=== PATIENT | male | born 1960 | race Caucasian/White ===

== ENCOUNTER → 2016-10-06 | Outpatient (CLI) | payer BC ==
[~2016-10-06] MED LIST: IBUP-14 PO
== END ==
LOC: NWCC 16:14
PROVIDERS: ATTEND Internal Medicine
DX: I87.2 Venous insufficiency (chronic) (peripheral) (principal); L97.312 Non-pressure chronic ulcer of right ankle with fat layer exposed; Z86.718 Personal history of other venous thrombosis and embolism
CPT/HCPCS: 29581

== ENCOUNTER → 2016-10-18 | Outpatient (CLI) | payer BC ==
[~2016-10-18] MED LIST changes: +HYDR-347 PO; +RIVA20TA PO
== END ==
LOC: NWCC 14:54
PROVIDERS: ATTEND Internal Medicine
DX: I87.2 Venous insufficiency (chronic) (peripheral) (principal); L97.312 Non-pressure chronic ulcer of right ankle with fat layer exposed; R60.0 Localized edema
CPT/HCPCS: 29581

== ENCOUNTER → 2016-10-24 | Outpatient (CLI) | payer BC | LOC: NWCC 14:56 | PROVIDERS: ATTEND Internal Medicine | DX: I87.2 Venous insufficiency (chronic) (peripheral) (principal); L97.312 Non-pressure chronic ulcer of right ankle with fat layer exposed; R60.0 Localized edema; I77.1 Stricture of artery | CPT/HCPCS: 29581 ==

== ENCOUNTER → 2016-10-31 | Outpatient (CLI) | payer BC | LOC: NWCC 14:52 | PROVIDERS: ATTEND Internal Medicine | DX: I87.2 Venous insufficiency (chronic) (peripheral) (principal); L97.312 Non-pressure chronic ulcer of right ankle with fat layer exposed; R60.0 Localized edema; I77.1 Stricture of artery ==

== ENCOUNTER 2016-11-02 10:26 | Outpatient (CLI) | payer BC ==
[~2016-11-02] VITALS: Ht 185.4 cm; Wt 116.4 kg
[2016-11-02] VITALS (12 sets, daily range): BP systolic 132–158; BP diastolic 90–100; PULSE 69–78; RESP 14–20; TEMP 97.4–98.4; O2SAT 95–96; Ht 185.4 cm; Wt 116.4 kg
[~2016-11-02 10:26] MED LIST changes: -HYDR-347 PO; -RIVA20TA PO
--- NOTE | 2016-11-02 10:30 | NUR ---
ADMIT PT ADMITTED TO ROOM 126 AT THIS TIME VIA AMBULATORY STATUS. PT REPOSITIONED SELF IN BED. WILL CONTINUE TO MONITOR.
[2016-11-02] MEDS ORDERED: NORMAL SALINE 1,000 ML IV SCH (10:45)
[2016-11-02] MEDS ORDERED: RIVA20TA PO (10:53)
[2016-11-02] MEDS ORDERED: HYDR-347 PO (10:55)
[2016-11-02 11:12] LABS: BASOPHILS % (AUTO) 0.5 % (0-2); EOSINOPHILS # (AUTO) 0.3 T/MM3 (0-0.5); EOSINOPHILS % (AUTO) 3.6 % (0-4); HGB - HEMOGLOBIN 15.6 GM/DL (13.5-17.5); IMMATURE GRANULOCYTE # (AUTO) 0.02 T/MM3 (0.00-0.03); IMMATURE GRANULOCYTE % (AUTO) 0.2 % (0.0-0.5); LYMPHOCYTES # (AUTO) 2.3 T/MM3 (1-4.8); LYMPHOCYTES % (AUTO) 26.5 % (23-45); MEAN CORPUSCULAR HGB 29.2 UUG (26-34); MEAN CORPUSCULAR HGB CONC(MCHC 33.9 GM/DL (31-37); MEAN CORPUSCULAR VOLUME 86.1 UM3 (80-100); MEAN PLATELET VOLUME 10.9 UM3 (9.4-12.4); MONOCYTES # (AUTO) 0.5 T/MM3 (0-0.8); NEUTROPHILS #(AUTO)-ABSOLUTE 5.5 T/MM3 (1.8-7.7); NEUTROPHILS % (AUTO) 63.2 % (33-66); RED BLOOD COUNT 5.34 M/MM3 (4.50-5.90); WBC - WHITE BLOOD COUNT 8.7 T/MM3 (4.5-11.0)
[2016-11-02 11:23] LABS: ANION GAP 13 MEQ/L (5-15); BUN/CREATININE RATIO 23 RATIO (6-26); CHLORIDE 109 MEQ/L (98-107); CO2 - CARBON DIOXIDE 22 MEQ/L (22-30); CREATININE 0.7 MG/DL (0.8-1.5); GLOMERULAR FILTRATION RATE 117; GLUCOSE 95 MG/DL (75-110); POTASSIUM 4.1 MEQ/L (3.6-5); SODIUM 144 MEQ/L (134-144)
--- NOTE | 2016-11-02 15:02 | NUR ---
TELMA HOLLIS VISITED PT. CM EXPLAINED ROLE AND PROVIDED CONTACT INFORMATION. PT DENIES NEEDS. PT PLANS [place] [facility] PT IS AWARE TO CONTACT CM IF NEEDS ARISE.
[2016-11-02] MEDS ORDERED: HEPARIN 1,000units in NS 500ml BAG IV ONE (16:00)
[2016-11-02] MEDS ORDERED: LIDOCAINE 1% (10mg/ml) 30ml SDV ONE (16:00)
--- NOTE | 2016-11-02 16:00 | NUR ---
TO STEAMTABLE WORKER PATIENT TAKEN TO STEAMTABLE WORKER AT THIS TIME VIA CART AND STEAMTABLE WORKER STAFF. BP CUFF, CONSENT AND CHART TAKEN WITH PATIENT. PT STABLE AND ON ROOM AIR AT TIME OF TRANSFER. WILL CONTINUE TO MONITOR.
[2016-11-02] MEDS ORDERED: FENTANYL 100mcg/2ml INJECTION ONE (16:16)
[2016-11-02] MEDS ORDERED: MIDAZOLAM 2mg/2ml INJECTION ONE (16:16)
[2016-11-02] MEDS ORDERED: NITROGLYCERIN 0.4 MG SUBLINGUAL TABLET SL PRN (16:45)
[2016-11-02] MEDS ORDERED: HYDROCODONE/APAP 5 mg/325 mg TABLET PO PRN (16:45)
[2016-11-02] MEDS ORDERED: ATROPINE 1 MG/ML VIAL IV PRN (16:45)
[2016-11-02] MEDS ORDERED: METOCLOPRAMIDE 10mg/2ml INJECTION IV PRN (16:45)
[2016-11-02] MEDS ORDERED: LORAZEPAM 1 MG TABLET PO PRN (16:45)
[2016-11-02] MEDS ORDERED: PROMETHAZINE 25 MG INJECTION IV PRN (16:45)
[2016-11-02] MEDS ORDERED: MILK OF MAGNESIA 30 ML SUSP PO PRN (16:45)
[2016-11-02] MEDS ORDERED: ACETAMINOPHEN 325 MG TABLET PO PRN (16:45)
[2016-11-02] MEDS ORDERED: ONDANSETRON 4mg/2ml INJECTION IV PRN (16:45)
[2016-11-02] MEDS ORDERED: LORAZEPAM 2 MG/ML INJECTION IV PRN (16:45)
[2016-11-02] MEDS ORDERED: MORPHINE SULFATE 4 MG SYRINGE IV PRN ×2 (16:45)
[2016-11-02] MEDS ORDERED: BISACODYL 10 MG SUPPOSITORY RECTALLY PRN (16:45)
[2016-11-02] MEDS ORDERED: BISACODYL 5 MG E.C. TABLET PO PRN (16:45)
[2016-11-02] MEDS ORDERED: MAG-AL + SIM LIQUID 30 ML UDC PO PRN (16:45)
--- NOTE | 2016-11-02 16:58 | NUR ---
RETURN PT RETURNED TO ROOM 126 AT THIS TIME VIA CART. PT TRANSFERRED FROM CART TO BED BY SLIDE BOARD AND ASSIST X3. VITAL SIGNS STABLE ON ROOM AIR. PT REMAINS FLAT AND LEFT LEG STRAIGHT AND IMMOBILE. BED ALARM ON. WILL CONTINUE TO MONITOR CLOSELY.
--- NOTE | 2016-11-02 17:43 | NUR ---
PAIN PT REPORTING PAIN A 10/10 AT THIS TIME IN HIS LOWER BACK. PT REMAINS FLAT IN BED POST HEART CATH. THIS RN PLACED BED IN REVERSE TRENDELENBURG POSITION TO ATTEMPT TO EASE PAIN. PT DENIED ANY RELIEF FROM THIS BED POSITION CHANGE. WITH THE ASSIST OF THE CLOTH SHRINKING TESTER ANGELITA Estrada PT WAS REPOSITIONED TO HIS RIGHT SIDE WITH A PILLOW PLACED UNDER HIS LEFT SIDE. PT'S LEFT LEG REMAINS FLAT AND IMMOBILE DURING THIS POSITION CHANGE AND PT FLAT IN BED. PT DID REPORT MINIMAL RELIEF. LEFT GROIN SITE DID REMAIN C/D/I AND NO S/S OF BLEEDING NOTED FROM LEFT GROIN ACCESS SITE. VITAL SIGNS REMAIN STABLE DURING THIS TIME ON ROOM AIR. THIS RN ALSO ADMINISTERED NORCO 5/325 X2 TABS AT THIS TIME FOR PAIN. WILL CONTINUE TO MONITOR LEFT GROIN SITE. BED ALARM ON. CALL LIGHT IN REACH.
--- NOTE | 2016-11-02 21:00 | NUR ---
DISMISSAL ASSISTED TO AMBULATE AFTER BEDREST. TOLERATED WELL. LEFT GROIN SITE SOFT WITHOUT SIGNS OF HEMATOMA POST AMBULATION. PATIENT MET DISCHARGE CRITERIA. ORAL AND WRITTEN DISCHARGE INSTRUCTIONS PROVIDED. PATIENT VERBALIZED UNDERSTANDING. IVL DC'D INTACT. DISCHARGED TO HOME VIA ED ENTRANCE WITH PERSONAL BELONGINGS. PATIENT DRIVEN BY SPOUSE.
--- NOTE | 2016-11-03 07:50 | CVPROF ---
LOWER EXTREMITY ANGIOGRAM DATE OF PROCEDURE November 02, [address] Derrick Flores - primary care physician The patient is a 56-year-old gentleman with a right lower extremity ulcer and abnormal lower extremity duplex study and was referred for further evaluation by cardiac catheterization and possible intervention. Informed consent was obtained after explaining the procedure and the potential risks to the patient who agreed to proceed with the procedure. PROCEDURE 1. Abdominal aortography by placing catheter in abdominal aorta. 2. Pelvic angiography by placing catheter in distal abdominal aorta. 3. Selective right lower extremity angiogram using crossover technique and placing catheter in right SFA and right common femoral. 4. Runoffs of the left lower extremity through the left femoral sheath. 5. Successful Mynx deployment for hemostasis. TECHNIQUE He was prepped and draped in the usual sterile techniques. Conscious sedation was performed using Versed and fentanyl. Using modified Seldinger technique, arterial access was obtained into the left femoral artery with placement of a 6-Maltese arterial sheath. ABDOMINAL AORTOGRAPHY Abdominal aortography showed smooth abdominal aorta with no significant lesions or aneurysms. There was a single renal artery to each kidney, both of which were patent. PELVIC ANGIOGRAPHY Pelvic angiography showed widely patent common iliacs, external and internal iliacs and common femoral arteries bilaterally. Selective right lower extremity angiogram showed patent profunda, SFA and popliteal artery. Right posterior tibial artery was patent all the way down to the foot and dominant. Right peroneal artery ordoñez down to a very small caliber vessel in mid leg and the right anterior tibial artery appears to be patent proximally. However, distal vessel was not visualized well due to lack of contrast penetration with a slow flow in lower extremity vasculature. Runoffs of the left lower extremity showed patent profunda, SFA and left popliteal artery. Again, left posterior tibial artery appears to be patent and dominant vessel. Left peroneal artery tapers down to very small caliber vessel as it is in the right leg. Left anterior tibial artery was visualized to mid segment which was patent but beyond that it was not visualized well. The patient tolerated the procedure well with no complications. Mynx was used for hemostasis. IMPRESSION 1. No significant peripheral arterial disease as described above. However, the distal anterior tibial arteries were not visualized well. 2. Successful Mynx deployment for hemostasis. PLAN Medical management. JEFFERY
== END 2016-11-02 21:00 | disposition home or self-care (01) ==
LOC: CATH 10:26 → SRG 10:27 → CATH 21:00
PROVIDERS: ATTEND Internal Medicine Cardiovascular Disease
DX: I77.89 Other specified disorders of arteries and arterioles (principal); M79.604 Pain in right leg; R93.6 Abnormal findings on diagnostic imaging of limbs
CPT/HCPCS: 36247; 75625; 75716; 80048; 85025; 93005; C1760; C1893; J1644; J2250; J3010; J7030; Q9967

== ENCOUNTER 2017-05-13 18:59 | Inpatient (IN) ==
[2017-05-13] MEDS ORDERED: FentaNYL 100 MCG/2 ML INJECTION IVP ONE (19:28)
--- NOTE | 2017-05-13 19:59 | Emergency Department Report ---
General Adult HPI - General Chief complaint: Fall Stated complaint: Fall/rt hip Time Seen by Provider: 05/13/17 19:13 Source: patient, family, EMS Mode of arrival: EMS Limitations: no limitations - History of Present Illness HPI narrative: 67-year-old male presents the emergency department with a chief complaint of an injury to his right hip. Patient was at a festival earlier today when he climbed over a 4 foot fence and slipped causing him to fall and land on his right hip. Patient denies striking his head, neck pain, or loss of consciousness. Patient does note drinking 4-5 beers today. Patient denies any other injuries. No other complaints or associated symptoms. Symptoms been persistent in nature since onset. The event occurred immediately prior to arrival to the emergency department today and was witnessed. Pain is moderate. Pain is dull. No radiation. Pain improves with rest and positioning. Patient denies any other complaints or associated symptoms. - Related Data Home Medications Medication Instructions Recorded Confirmed Hydrocodone/Acetaminophen [[place] 1 tab PO BID #0 tab 11/02/16 05/13/17 7.5-325 Tablet] Rivaroxaban [Xarelto] 20 mg PO DAILY #30 tab 11/02/16 05/13/17 Allergies Allergy/AdvReac Type Severity Reaction Status Date / Time No Known Drug Allergies Allergy Unknown Verified 05/13/17 19:24 Review of Systems Constitutional: Denies: fever, weakness Eyes: Denies: eye pain, vision change ENT: Denies: ear pain, throat pain Cardiovascular: Denies: chest pain, palpitations Respiratory: Denies: cough, dyspnea Gastrointestinal: Denies: abdominal pain, nausea, vomiting, diarrhea Genitourinary: Denies: urgency, dysuria Musculoskeletal: Reports: arthralgia. Denies: back pain Integumentary: Denies: erythema, rash Neurological: Denies: headache, numbness, paresthesias Psychiatric: Denies: anxiety, depression Endocrine: Denies: fatigue, heat or cold intolerance Hematological/Lymphatic: Denies: easy bleeding, easy bruising Allergic/Immunologic: Denies: facial swelling, urticaria PFSH Patient Stated Medical History Other Hematologic Yes: BLOOD CLOT R KNEE Surgical History: Cautery of varicosity Family History: Reviewed and noncontributory - Social History Smoking status: Never smoker Substance use type: does not use Alcohol intake frequency: holidays/special occasions only Physical Exam - Limitations Limitations: no limitations - General General appearance: alert, in no apparent distress - Normal Exams: Head:: Normocephalic without trauma Eyes:: Pupils are PERRLA w/ EOMI, No scleral icterus, irritation, or foreign bodies noted ENMT:: No facial trauma, nasal exudates, pharyngeal erythema, or exudates are noted Dental: No fractured, loose, or missing teeth noted Neck:: Full range of motion, without adenopathy, JVD, bruits or thyromegaly Chest/Respirations:: Clear all almeida, with good airflow, and symmetry bilaterally Cardiovascular:: Regular rate and rhythm, without murmur or gallop, Pulses 2+ all extremities, capillary refill, <2 seconds all extremities Abdomen:: Bowel sounds positive, soft, non-tender, non-distended, no hepatosplenomegaly, masses or bruits noted Lymphatic:: No lymphadenopathy, or lymphedema noted Musculoskeletal:: No tenderness, or deformity noted, good range of motion (no midline tenderness or deformity of the cervical/lumbar/thoracic spine.), all extremities (right hip decreased range of motion secondary to pain. Pulses are intact. Sensation intact. Capillary refill less than 2. Generalized tenderness to palpation. Skin is intact. No other tenderness in the right lower extremity. All other extremities are unremarkable.) Integumentary:: No rashes, hives, or bruising noted, hair and nails, without abnormality Neurological:: Patient is alert, and oriented, cranial nerves, motor/sensory/ cerebellar, exams w/o gross deficits, to observation Psychiatric:: Patient exhibits, appropriate attention, emotion and affect Course Vital Signs Temperature 98.1 F 05/13/17 18:49 Pulse Rate 81 05/13/17 18:49 Respiratory Rate 18 05/13/17 18:49 Blood Pressure 121/77 05/13/17 18:49 Pulse Oximetry 92 05/13/17 18:49 Temperature 98.6 F 05/14/17 00:34 Pulse Rate 80 05/14/17 00:34 Respiratory Rate 20 05/14/17 00:34 Blood Pressure 121/68 05/14/17 00:34 Pulse Oximetry 94 05/14/17 00:34 Medical Decision Making - [facility] Narrative Medical decision making narrative: Imaging is discussed in detail with the patient and family and questions are answered. Patient is given analgesic pain medication intravenously with 1 hour of arrival to the emergency Department. Patient is discussed with Dr. Hoskins of orthopedics who recommends admission to the hospitalist service. Patient is discussed with Dr. Mcarthur and admitted to the service of the hospitalist in improved condition. Preoperative labs will be ordered and followed by the hospitalist service. Patient is in agreement with the current plan of management. Patient is admitted to the hospital in improved condition. No further orders. - Differential Diagnosis hip fracture, sprain, strain, contusion - Lab Data Result diagrams: 05/13/17 22:55 05/13/17 22:55 - Radiology Data Pelvis x-ray with right hip: Femoral neck fracture. CT head/C-spine: No acute processes. Disposition Clinical Impression: hip fracture [place] [facility] Condition: Stable Time of Disposition: 21:00 - Seen By: physician
--- NOTE | 2017-05-13 22:19 | History & Physical Report ---
History of Present Illness Date: 05/14/17 Chief complaint: hip pain HPI: 57-year-old male who was in his usual state of health this evening, he was at a libertarian, was trying to climb over a 4 foot fence, fell on his right hip. He experienced immediate pain, was brought to the emergency room and evaluated. Was noted to have a femoral neck fracture. He does take Xarelto for a history of right lower extremity DVT. last dose on May 12. He can typically walk across a flat surface or above on stairs without having to stop too much shortness of breath. Review of Systems All systems PM: 10-point ROS was reviewed, no additional remarkable complaints except (he does have a history of right lower extremity DVT with some resultant chronic venous stasis changes and ulcerations) [facility] Medical History Updates: Hx DVT 2012 (thought d/t travel/immobility). right leg ulcers related to thrombophlebitis Surgical History: Cautery of varicosity - Social History Smoking status: Former smoker Packs-years: 35 Quit date: 08/07/01 Medications Home Medications Medication Instructions Recorded Confirmed Type Hydrocodone/Acetaminophen [[place] 1 tab PO BID #0 tab 11/02/16 05/13/17 History 7.5-325 Tablet] Rivaroxaban [Xarelto] 20 mg PO DAILY #30 tab 11/02/16 05/13/17 History Allergies Allergy/AdvReac Type Severity Reaction Status Date / Time No Known Drug Allergies Allergy Unknown Verified 05/13/17 19:24 Exam Vital Signs: Temperature 98.1 F 05/13/17 18:49 Pulse Rate 81 05/13/17 18:49 Respiratory Rate 18 05/13/17 18:49 Blood Pressure 121/77 05/13/17 18:49 Pulse Oximetry 92 05/13/17 18:49 - Additional findings Additional findings: is quite pleasant, he appears slightly older stated age therefore the year quite impressive in no distress Lungs are clear bilaterally Cardiovascular regular without murmur gallop Abdomen soft benign nontender obese extremities he has chronic venous stasis changes I dont see acute ulcers on legs Results - Labs CBC & Chem 7: 05/13/17 22:55 05/13/17 22:55 - ECG Data Tracing #[address] t wave changes Conduction abnormalities present: RBBB Assessment and Plan (1) Fracture of femoral neck, right, closed Current visit: Yes Status: Acute 05/13/17 22:17 After midnight, labs are pending EKG and chest x-ray are ok for preoperative clearance. I expect he'll be appropriate to proceed with surgery with the exception possibly Xarelto (last taken on 05-12). Judgment will have to be per disussion with daytime radar operator and orthopedist as to whether to proceed or wait, I think proceeding should be fine but would expect xarelto to be active for 2-3 days at least 05/14/17 06:40 (2) History of DVT (deep vein thrombosis) Current visit: Yes Status: Acute 05/14/17 06:40 last took Xarelto on 05-12 (3) Thrombophlebitis leg superficial Current visit: Yes Status: Acute Hospital Course Summary Disclaimer: The visit summary below is not to be considered part of the above Progress Note.
[2017-05-13] MEDS ORDERED: HYDROCODONE/APAP 5mg/325mg TABLET PO PRN (22:24)
[2017-05-13] MEDS ORDERED: ONDANSETRON 4 MG/2 ML INJECTION IVP PRN (22:24)
[2017-05-13 22:27] VITALS: BMI 34.2
[2017-05-13] MEDS: D5-1/2NS 1,000 ML IV SCH (22:47)
[2017-05-13] MEDS: HYDROMORPHONE 2 MG/ML INJECTION IVP PRN (22:48)
[2017-05-14] MEDS: HYDROMORPHONE 2 MG/ML INJECTION IVP PRN ×6 (01:21→23:56)
[2017-05-14] MEDS: Oxycodone/Acetaminophen 5/325 1 TAB PO PRN ×4 (07:58→20:12)
[2017-05-14] MEDS: D5-1/2NS 1,000 ML IV SCH ×2 (08:16→18:34)
--- NOTE | 2017-05-14 09:10 | XRay Report ---
Indication: Hip fx PROCEDURE: XR chest 1V: Encounter: Initial Comparison: December 07, 2011 Findings: No pneumonia, pleural effusion or pneumothorax. Mild fibrotic changes. Heart size and mediastinal contours are within normal limits. Impression: No acute cardiopulmonary disease. .
--- NOTE | 2017-05-14 09:12 | CT Scan Report ---
Indication: fall, CHI PROCEDURE: CT head/brain wo con: Encounter: Initial Comparison: None Technique: Axial CT images through the head were performed without contrast. Iterative Reconstruction dose reducing technique was utilized. FINDINGS: The ventricles are of normal size, shape, and configuration for the patient's age. There is no evidence of acute intracranial hemorrhage, midline displacement, or mass effect. There are scattered areas of low attenuation in the white matter which most likely represent changes of chronic microvascular ischemia. The CT attenuation of the brain parenchyma is otherwise normal within the cerebellum, brain stem, and cerebral hemispheres. The tympanic cavities and mastoid air cells are free of appreciable disease. There are no definite fractures of the skull base, calvarium, or visualized portion of the midface. Moderate sinus disease with chronic left maxillary sinusitis. IMPRESSION: No CT evidence of acute traumatic intracranial injury. There is a preliminary report by [facility] [employer]. .
--- NOTE | 2017-05-14 09:14 | CT Scan Report ---
Indication: fall, pain PROCEDURE: CT cervical spine wo con: Encounter: Initial Comparison: None Technique: Axial CT images through the cervical spine were performed without contrast. Coronal and sagittal reformatted images were also obtained. Automated Exposure Control and Iterative Reconstruction dose reducing techniques were utilized. FINDINGS: The alignment of the cervical spine is normal. Multilevel degenerative changes are present. There is no evidence of acute fracture or subluxation of the cervical spine. The facet joints are well aligned with preservation of the intervertebral disk and facet joints. The atlantoaxial articulation, dens, and upper cervical spine demonstrate no subluxation. There is no evidence of significant spinal stenosis, foraminal compromise, or significant disk herniation. The paraspinal soft tissues and spinal canal appear unremarkable. IMPRESSION: No acute traumatic abnormality of the cervical spine. There is a preliminary report by [facility]. .
--- NOTE | 2017-05-14 09:15 | XRay Report ---
Indication: Pain, fall PROCEDURE: XR pelvis w/ 2 view RT hip: Encounter: Initial Comparison: None Findings: Mildly displaced right femoral neck fracture. No additional acute fracture or dislocation seen. No significant angulation. Impression: Closed posttraumatic subcapital right femoral neck fracture. .
--- NOTE | 2017-05-14 10:28 | Orthopedic Consult Note ---
Orthopedic Consultation HPI - Consultation Info Consult Date: 05/14/17 Attending Physician: Cas Cox MD Consult Reason: fracture (Right Femoral Neck Fracture) - History of Present Illness 57 yo male presented to the ED last night after tripping over a 4 foot snow fence and falling on his right hip. Immediate pain and inability to WB. Still in a fair amount of pain despite IV pain meds. Complains of spasm. No traction at this time. Has been NPO so no oral meds. Takes Xarelto for DVT since 2012. DVT cause assumed to be secondary to stasis, inactivity. Has recently been having medial thigh and knee pain. There was concern for new DVT so his PCP had ordered an MRI. Showed some medial femoral condyle edema, mild cartilage loss, meniscus tear. Pain is moderate. Primarily in the groin area of the right hip. Denies LOC, neck pain, or other extremity pain. Review of Systems - Constitutional Constitutional: Absent: chills, fever(s), night sweats - EENT Eyes: Absent: change in vision Ears, nose, mouth, throat: Absent: headaches, vertigo, lightheadedness - Cardiovascular Cardiovascular: Absent: chest pain, palpitations, dyspnea on exertion Vascular: Present: pedal edema, varicosities, other (ho stasis ulcers, RLE DVT) - Respiratory Respiratory: Absent: cough, dyspnea, dyspnea on exertion - Gastrointestinal Gastrointestinal: Absent: constipation, diarrhea - Musculoskeletal Musculoskeletal: Present: as per HPI, limited range of motion, muscle cramps, joint pain - Integumentary/Breasts Integumentary: Present: swelling - Neurological Neurological: Absent: abnormal gait, dizziness, numbness, tingling - Psychiatric Psychiatric: Absent: anxiety, depression - Hematologic/Lymphatic Hematologic/Lymphatic: Present: easy bleeding (Xarelto), easy bruising (Xarelto) [facility] Patient Stated Medical History Other Hematologic Yes: BLOOD CLOT R KNEE Medical History Updates: Hx DVT 2012 (thought d/t travel/immobility). 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, runs a brake Medications Home Medications Medication Instructions Recorded Confirmed Type Hydrocodone/Acetaminophen [[place] 1 tab PO BID #0 tab 11/02/16 05/13/17 History 7.5-325 Tablet] Rivaroxaban [Xarelto] 20 mg PO DAILY #30 tab 11/02/16 05/13/17 History Allergies Allergy/AdvReac Type Severity Reaction Status Date / Time No Known Drug Allergies Allergy Unknown Verified 05/13/17 19:24 Orthopedic Exam Vital signs: Temperature 98.4 F 05/14/17 08:00 Pulse Rate 75 05/14/17 08:00 Respiratory Rate 16 05/14/17 08:00 Blood Pressure 137/82 05/14/17 08:00 Pulse Oximetry 94 05/14/17 08:00 - Constitutional General Appearance: Present: alert, orientated x3, mild distress - Respiratory Exam Present: non-labored - Cardiovascular Exam Present: peripheral edema (mild), pedal pulses intact Capillary Refill: < 2-3 Seconds - Abdominal Exam Present: soft. Absent: tenderness, distended - Extremities Exam Present: pulses intact, normal capillary refill. Absent: calf tenderness, Jess 's sign - Hip Exam right Hip Exam: Present: tender over trochanter, abnormal rotation, painful PROM, IR- limited - Integumentary Exam Present: pink, warm, dry Comments: RLE stasis. No active ulcers. - Neurological Exam Present: intact to light touch, no deficits - Psychiatric Exam Present: alert, oriented, normal affect, attentive - Labs Result Diagrams: 05/13/17 22:55 05/13/17 22:55 Abnormal lab results 05/13/17 05/13/17 05/14/17 Range/Units 22:55 22:55 00:25 WBC 12.4 H (4.5-11.0) T/MM3 Neut % (Auto) 78.3 H (33-66) % Lymph % (Auto) 15.3 L (23-45) % Neut # (Auto) 9.7 H (1.8-7.7) T/MM3 Sodium 145 H (134-144) MEQ/L Chloride 112 H (98-107) MEQ/L Carbon Dioxide 21 L (22-30) MEQ/L Creatinine 0.7 L (0.8-1.5) MG/DL Ur Specific [place] 1.010 L (1.015-1.025) Urine Occult Blood 1+ A (NEGATIVE) H & H 05/13/17 Range/Units 22:55 Hgb 14.2 (13.5-17.5) GM/DL Hct 41.8 (41-53) % - Diagnostic results Hip x-ray: report reviewed, image reviewed (Right displaced femoral neck fracture) Impression and Recommendation (1) Fracture of femoral neck, right, closed Current visit: Yes Qualifiers: Encounter type: initial encounter Qualified Code(s): S72.001A - Fracture of unspecified part of neck of right femur, initial encounter for closed fracture Status: Acute Discussed the findings with the patient regarding his fracture. His fracture will necessitate surgical treatment in the form of a DARLIN vs endoprosthesis because of the displacement and likely disruption of blood flow to the femoral head. He is still relatively active and has been having medial thigh pain and knee pain. His MRI does show some medial knee arthritis, but could also be secondary to some of his mild/moderate hip OA. He thinks he would be more interested in DARLIN than hemiarthroplasty and would like to discuss this further with Dr. Villafuerte. Delaying surgery is understood, but would be delayed anyway, ideally, because of his anticoagulation with Xarelto. I spoke with Dr Villafuerte who agrees and is planning to add Mr. Lewis to his OR schedule for Monday. Will allow regular diet today and tomorrow. Dr. Villafuerte to see him tomorrow to discuss surgery further. For spasm, Gosper traction was offered. Will also start on po percocet with dilaudid prn for breakthrough. Ok to start lovenox for prophylaxis at this time. Hospital Course Summary Disclaimer: The visit summary below is not to be considered part of the above Progress Note.
--- NOTE | 2017-05-14 11:09 | Progress Note ---
Subjective: 57 yo male presented to the ED last night after tripping over a 4 foot snow fence and falling on his right hip. Immediate pain and inability to bear weight. He was in a fair amount of pain despite IV pain meds. Complains of spasm. No traction at this time. Has been NPO so no oral meds. Takes Xarelto for DVT since 2012. DVT cause assumed to be secondary to stasis, inactivity. Has recently been having medial thigh and knee pain. There was concern for new DVT so his PCP had ordered an MRI. Showed some medial femoral condyle edema, mild cartilage loss, meniscus tear. Pain is moderate. Primarily in the groin area of the right hip. Denies LOC, neck pain, or other extremity pain. 05/14/2017 the patient reports that prior to his fall he his been in normal state of health. He is fairly active. He was at a gathering last evening and stepped over a snow fence catching his foot. He landed on his right hip and was unable to ambulate thereafter due to severe pain and unable to bear weight. He had had 4 beers but state this is unrelated to his fall. His history is that of a DVT in 2012. He had been traveling prior to the discovery of the DVT and that was felt to be the etiology. He was on Coumadin for 6 months and then they switched him to Xarelto. He's been on that ever since. He denies any other medical history and is only home meds include the Xarelto and hydrocodone for pain. He has been having quite a bit of right knee pain lately and had a recent MRI performed for evaluation. He tells me he does not know the results of the MRI. MRI: 05/08/2017 IMPRESSION: 1. Subchondral edema is seen at the posterior aspect of the medial femoral condyle likely representing a bone contusion or osteochondral injury. 2. Horizontal linear signal seen at the posterior horn of the lateral meniscus which comes close to the inferior surface and an inferiorly surfacing degenerative tear cannot be excluded towards the central aspect. He has not been ill lately. He said no fever, chills, cold or flu like symptoms. He denies any cough sputum production. He does get a bit short of breath with exertion but it's no worse than usual. He denies palpitations, chest discomfort. He does get a little lightheaded when changing positions from lying to sitting standing. He simply takes this time. He does have chronic back pain for which she was seeing a chiropractor but that chiropractor has since retired. He denies any abdominal pain, nausea, vomiting, diarrhea, constipation , black tarry stools or bloody stools. He denies any dysuria. He denies lower extremity edema. This morning he is resting in bed. He is in traction on the right hip. He is having moderate pain. 05/14/2017 1530 I was contacted earlier today from nursing reporting the patient was having blood from his penile meatus. They had given him a dose of Lovenox ordered by ortho. He was not urinating blood it was simply draining out the end of his penis. There was considerable amount blood dripping out. The patient denies ever having any issues like this before. He denies any trauma. He denies dysuria. He denies pain. I saw him later in the afternoon and he reports it has slowed down. He's quite concerned that this may delay surgery. I did consult urology to see the patient. Objective Vital signs: Temperature 98.4 F 05/14/17 08:00 Pulse Rate 75 05/14/17 08:00 Respiratory Rate 16 05/14/17 08:00 Blood Pressure 137/82 05/14/17 08:00 Pulse Oximetry 94 05/14/17 08:00 Rhythm: Normal Sinus Rhythm, Bundle Branch Block Height/Weight/BMI: Height 1.85 m Weight 118.1 kg Body Mass Index 34.2 Comments: Gen.: the patient is alert and oriented. Mild to moderate discomfort from his hip. Skin: warm and dry. HEENT: NC/AT PERRL, EOMI, Sclera, lids and conjunctiva wnl. MMM, OP clear. Neck: Supple. No JVD. Carotids 2+ without bruits. Lungs: Clear. No rales, rhonchi or wheezes. CV: regular rate and rhythm without murmur, rub or gallop. Abdomen: obese, soft, nontender with positive bowel sounds. MS: right lower extremity in traction. There is no lower extremity edema. There are good distal pedal pulses. Neuro: no focal deficits. Results - Labs CBC & Chem 7: 05/13/17 22:55 05/13/17 22:55 Assessment and Plan (1) Fracture of femoral neck, right, closed Current visit: Yes Status: Acute 05/13/17 22:17 After midnight, labs are pending EKG and chest x-ray are ok for preoperative clearance. I expect he'll be appropriate to proceed with surgery with the exception possibly Xarelto (last taken on 05-12). Judgment will have to be per disussion with daytime projection welding machine operator and orthopedist as to whether to proceed or wait, I think proceeding should be fine but would expect xarelto to be active for 2-3 days at least 05/14/17 06:40 (2) History of DVT (deep vein thrombosis) Current visit: Yes Status: Acute 05/14/17 06:40 last took Xarelto on 05-12 (3) Thrombophlebitis leg superficial Current visit: Yes Status: Acute DVT Prophylaxis: Lovenox Resuscitation Status: Full Code Assessment and Plan: 1. Closed Fracture of the right femoral neck -plan for surgery tomorrow with Dr. Hoskins -patient interaction -provide pain relief 2. History of DVT in 2012 -previously on Coumadin but then switched to Xarelto -Xarelto on hold for anticipated hip replacement. 3. Mild leukocytosis -likely reactive 4. SCD's for prophylaxis 5. Bright red blood draining from penis. -Urology consultation. -Quantitatively this has improved through the afternoon -will continue to follow. Hospital Course Summary Disclaimer: The visit summary below is not to be considered part of the above Progress Note.
[2017-05-14] MEDS ORDERED: CEFAZOLIN 1 G INJECTION IVP ONE (12:25)
[2017-05-14] MEDS ORDERED: ENOXAPARIN 40 MG/0.4 ML INJECTION SQ SCH (12:30)
[2017-05-15] MEDS ORDERED: SALINE FLUSH 10ml SYRINGE IV PRN (00:01)
[2017-05-15] MEDS: Oxycodone/Acetaminophen 5/325 1 TAB PO PRN ×5 (03:53→20:04)
[2017-05-15] MEDS: D5-1/2NS 1,000 ML IV SCH ×2 (04:36→14:47)
--- NOTE | 2017-05-15 10:28 | XRay Report ---
Indication: Pre op planning. Rt total hip scheduled. Procedure: XR pelvis 1-2V: Encounter: Subsequent Comparison: Pelvic and right hip radiographs 05/13/2017 Technique: A single AP view of the pelvis was obtained Findings: Generalized osteopenia. Redemonstration and grossly unchanged mildly displaced, foreshortened, and angulated fracture of the right femoral neck. Degenerative arthrosis of the hips. No focal radiographically apparent soft tissue swelling. No radiopaque foreign body. Impression: Unchanged radiographic appearance of the patient's known right femoral neck fracture. .
[2017-05-15] MEDS: HYDROMORPHONE 2 MG/ML INJECTION IVP PRN ×3 (11:19→22:20)
--- NOTE | 2017-05-15 19:28 | Progress Note ---
<Laura Caldwell - Last Filed: 05/15/17 19:25> Subjective: Patient is seen today lying in bed. He has traction on the right leg. He will be going to surgery tomorrow. He continues to have quite a bit of pain. He doesn 't feel the Percocet or Dilaudid helps very much at all. Nurse reports she's been giving the Percocet routinely. He continues to complain that his pain is the same, although he can chat with family and go through daily motions without acting like he is having significant pain. He's not had a bowel movement since he has been here. Other than the pain in his hip and knee, he has no complaints. He is anxious to see urology for the bleeding from his penis. He's afraid that that would delay the surgery. Dr. Smith has been consulted but has not been in to see him yet. He has not had any further significant bleeding. He will sometimes have just a few drops of blood after urinating. No obvious blood in the urine. No pain on urination. Objective Vital signs: Temperature 98.1 F 05/15/17 15:00 Pulse Rate 72 05/15/17 15:00 Respiratory Rate 16 05/15/17 15:00 Blood Pressure 157/86 H 05/15/17 15:00 Pulse Oximetry 95 05/15/17 15:00 Height/Weight/BMI: Height 1.85 m Weight 118.1 kg Body Mass Index 34.2 - Constitutional Present: no acute distress, well nourished, well developed - Routine HEENT Exam Head: Present: normocephalic, atraumatic - Routine Respiratory Exam Present: CTA bilaterally. Absent: dyspnea, wheezes - Routine Cardiovascular Exam Present: RRR, S1, S2. Absent: murmur - Routine Abdominal Exam Present: soft, normoactive bowel sounds, non distended. Absent: tenderness - Routine Extremities Exam Present: no edema (left lower extremity. The right lower extremity is protected in foam.), normal capillary refill - Routine Skin Exam Present: dry, warm - Routine Neurological Exam Present: alert, oriented X3, CN II-XII intact - Routine Lymphatic Exam Lymphatic: Absent: adenopathy - Routine Psychiatric Exam Present: normal affect Results - Labs CBC & Chem 7: 05/15/17 04:49 05/15/17 04:49 Assessment and Plan (1) Fracture of femoral neck, right, closed Current visit: Yes Status: Acute (2) History of DVT (deep vein thrombosis) Current visit: Yes Status: Acute Last Xarelto dose 05/12/17 (3) Thrombophlebitis leg superficial Current visit: Yes Status: Acute Assessment and Plan: Impression Closed Fracture of the right femoral neck History of DVT in 2012 Mild leukocytosis -resolved Bright red blood draining from penis following administration of Lovenox Plan Will be NPO after midnight for surgery with Dr. Villafuerte tomorrow. Lovenox and Xarelto are currently on hold. Lovenox was held after bleeding from the penis. Still having very minimal bleeding after urinating. Awaiting Dr. Smith's consultation. Increase Dilaudid to 1 mg IV every 2 hours PRN since he will not be receiving Percocet after midnight. Hospital Course Summary Disclaimer: The visit summary below is not to be considered part of the above Progress Note. Hospital Course: Closed Fracture of the right femoral neck History of DVT in 2012 Mild leukocytosis -resolved Bright red blood draining from penis following administration of Lovenox 05/13/17-hospital admission Patient admitted under hospitalist service and or the consult. Xarelto last taken 05/12/17. Will hold this. May have regular diet until surgery is scheduled. 05/14/17 1. Closed Fracture of the right femoral neck -Hernandez's traction was initiated. Lovenox prophylaxis was started. 2. History of DVT in 2012 -previously on Coumadin but then switched to Xarelto -Xarelto on hold for anticipated hip replacement. 3. Mild leukocytosis -likely reactive 4. SCD's for prophylaxis 5. Bright red blood draining from penis following administration of Lovenox. Lovenox was thus discontinued. -Urology consultation. -Quantitatively this has improved through the afternoon -will continue to follow. 05/15/17 Will be NPO after midnight for surgery with Dr. Villafuerte tomorrow. Lovenox and Xarelto are currently on hold. Lovenox was held after bleeding from the penis. Still having very minimal bleeding after urinating. Awaiting Dr. Smith's consultation. Increase Dilaudid to 1 mg IV every 2 hours PRN since he will not be receiving Percocet after midnight. <Deja Ortiz - Last Filed: 05/15/17 22:35> Objective Vital signs: Temperature 98.1 F 05/15/17 15:00 Pulse Rate 72 05/15/17 15:00 Respiratory Rate 16 05/15/17 15:00 Blood Pressure 157/86 H 05/15/17 15:00 Pulse Oximetry 95 05/15/17 15:00 Height/Weight/BMI: Height 1.85 m Weight 118.1 kg Body Mass Index 34.2 Results - Labs CBC & Chem 7: 05/15/17 04:49 05/15/17 04:49 Assessment and Plan (1) Fracture of femoral neck, right, closed Current visit: Yes Status: Acute (2) History of DVT (deep vein thrombosis) Current visit: Yes Status: Acute (3) Thrombophlebitis leg superficial Current visit: Yes Status: Acute Assessment and Plan: 05/15/2017-I reviewed this chart, the patient history, and the HAND SAMPLE MAKER's/PA's documented findings as above. We discussed and formulated the assessment and plan as above with the additions below.-Ortiz The patient is feeling well other than hip pain. He denies any shortness of breath. He is eating and drinking well. He denies pain elsewhere. He states the bleeding from his penis that he had previously has completely resolved. He did not have any trauma to his penis that he is aware of. On exam the patient is alert and oriented 3 and in no acute distress. Chest is clear to auscultation. Cardiovascular reveals a regular rate and rhythm. Abdomen is soft and nontender. Impression and plan Overall patient is doing well. Agree with plans for surgery tomorrow. Resume anticoagulation postoperatively when okay with the orthopedic service. Discussed hematuria with urology tomorrow. Hospital Course Summary Disclaimer: The visit summary below is not to be considered part of the above Progress Note.
[2017-05-16] MEDS: Oxycodone/Acetaminophen 5/325 1 TAB PO PRN (00:06)
[2017-05-16] MEDS: D5-1/2NS 1,000 ML IV SCH ×2 (01:09→16:54)
[2017-05-16] MEDS: HYDROMORPHONE 2 MG/ML INJECTION IVP PRN ×6 (02:02→14:09)
[2017-05-16] MEDS ORDERED: NOZIN NASAL SWAB NAS ONE ×2 (06:00→14:33)
[2017-05-16] MEDS ORDERED: CEFAZOLIN 1 G INJECTION IVP ONE (07:00)
[2017-05-16] MEDS ORDERED: EPINEPHrine 0.25 MG, BUPIVACAINE 0.25% PF 30 ML, MORPHINE SULFATE 15 MG, KETOROLAC INJ ... OPSITE ONE (08:00)
[2017-05-16] MEDS ORDERED: DEXAMETHASONE 4 MG/ML INJECTION IVP ONE (10:00)
[2017-05-16] MEDS ORDERED: ONDANSETRON 4 MG/2 ML INJECTION IVP ONE (10:00)
[2017-05-16] MEDS ORDERED: TRANEXAMIC ACID 1,000 MG in NS 100 ML TOP ONE (10:00)
[2017-05-16] MEDS ORDERED: ACETAMINOPHEN 500 MG TABLET PO ONE (10:00)
[2017-05-16] MEDS ORDERED: FAMOTIDINE PB 20 MG/50 ML BAG IV ONE (10:00)
[2017-05-16] MEDS ORDERED: METOCLOPRAMIDE 10mg/2ml INJECTION IVP ONE (10:00)
[2017-05-16] MEDS: LR 1,000 ML IV SCH ×3 (10:01→12:31)
[2017-05-16] MEDS ORDERED: VANCOMYCIN 1,000 MG INJECTION ONE (11:05)
[2017-05-16] MEDS ORDERED: FentaNYL 100 MCG/2 ML INJECTION ONE (11:12)
[2017-05-16] MEDS ORDERED: MIDAZOLAM 2mg/2ml INJECTION ONE (11:12)
[2017-05-16] MEDS ORDERED: PROPOFOL 20 ML ONE (11:14)
[2017-05-16] MEDS ORDERED: SUCCINYLCHOLINE 20mg/mL 10mL INJECTION ONE (11:14)
[2017-05-16] MEDS ORDERED: EPHEDRINE 50mg/ml INJECTION ONE (11:41)
[2017-05-16] MEDS ORDERED: HYDROMORPHONE 2 MG/ML INJECTION ONE (11:56)
[2017-05-16] MEDS ORDERED: ONDANSETRON 4 MG/2 ML INJECTION ONE (11:58)
[2017-05-16] MEDS ORDERED: DEXAMETHASONE 4 MG/ML INJECTION ONE (11:58)
[2017-05-16] MEDS ORDERED: VANCOMYCIN 1,000 MG INJECTION IAR ONE (12:33)
[2017-05-16] MEDS ORDERED: SALINE FLUSH 10ml SYRINGE ONE (12:38)
--- NOTE | 2017-05-16 12:51 | Operative Note ---
- Procedure Preoperative Diagnosis: Right hip primary degenerative joint disease Postoperative Diagnosis: Same as preoperative diagnosis. Surgeon: Ely Villafuerte MD Marketing Director Assisted Living: [facility] Complications: None. Anesthesia: General Estimated Blood Loss: See Anesthesia Record. Fluids: Please see Anesthesia Record. Description of Procedure: Mr. Lewis and his right hip were identified and marked in the preoperative holding area. He was brought back to operating suite and placed supine on the operating table. He is placed under general anesthesia and then place and allowed decubitus position with his right side up on a well-padded table. The right lower extremity was prepped and draped in my normal sterile fashion. Timeout was performed. Leg lengths were difficult to assess preoperatively due to the fracture. A posterior approach was utilized. Sharp dissection was carried through the skin and subcutaneous tissue down to the muscle fascia which was then split in line with the skin incision. A Charnley retractor was placed. The short external rotators were identified and tagged and detached. Capsulotomy was performed and a femoral neck osteotomy was made. The head as well as neck piece were removed. The acetabulum was exposed. There were minimal arthritic changes. I then reamed to 5 7 placed a 58 cup in 20 of anteversion and 40 of tilt. A liner was placed. The proximal femur was then prepared with a BridgeCoie cutter followed by broaching to a size 9. We trialed with 132 neck to match his previous anatomy most accurately. It took a +10 head to regain his leg length and give appropriate shuck. I did check positioning and leg length with fluoroscopic imaging at this point. He was very stable throughout range of motion. Trial components were removed and a final Accolade 2 size 9 with 132 neck was placed. We again trialed with a +10 was felt good. A final metal +10 36 mm head was placed and final reduction performed. Joint cocktail was injected throughout the soft tissues.1 g of TXA was allowed to sit in the wound for 5 minutes and then suctioned out. Capsulotomy was repaired with #1 Ethibond the short external rotators were also repaired with #1 Ethibond. Vancomycin powder was placed into the wound. The muscle fascia was repaired with #1 Vicryl. I then left my assistant family teacher to close the subcutaneous tissue with 2-0 Vicryl followed by running 4-0 Monocryl in the skin followed by Dermabond and a sterile dressing. The patient will then be allowed to awake from general anesthesia and taken recovery room under the care of anesthesia.
--- NOTE | 2017-05-16 13:57 | Anesthesia Postoperative Note ---
- Date and Time Date: 05/16/17 Time: 13:57 - Status Patient Participated in Evaluation: Patient Participated in Person Vital Signs: Temperature 97.1 F 05/16/17 13:14 Pulse Rate 94 05/16/17 13:45 Respiratory Rate 13 05/16/17 13:45 Blood Pressure 142/84 H 05/16/17 13:45 Pulse Oximetry 96 05/16/17 13:45 Respiratory Function: Airway Patent Cardiovascular Function: Regular Pulse EKG: Sinus Rhythm Mental Status: Alert and Oriented Pain Intensity: 4 Hydration: IV Infusing Complications During Recover: None Apparent - Follow-Up Instructions Instructions: Per Surgeon
--- NOTE | 2017-05-16 13:57 | Anesthesia Preoperative Report ---
Anesthesia Preoperative Record - Date and Time Date: 05/16/17 Preoperative Diagnosis: R Hip fx Proposed Procedure: right DARLIN NPO Since Date: 05/15/17 NPO Since Time: 23:00 Allergies/Adverse Reactions: Allergies Allergy/AdvReac Type Severity Reaction Status Date / Time No Known Drug Allergies Allergy Unknown Verified 05/13/17 19:24 - Vital Signs Vital Signs: Temperature 97.1 F 05/16/17 13:14 Pulse Rate 94 05/16/17 13:45 Respiratory Rate 13 05/16/17 13:45 Blood Pressure 142/84 H 05/16/17 13:45 Pulse Oximetry 96 05/16/17 13:45 Height and Weight: Height 6 ft 1 in Weight 118.1 kg Body Mass Index 34.2 - Medications Inpatient Medications: Current Medications Hydrocodone Bitart/Acetaminophen ([place] 5/325) 1 tab PO Q6H PRN PRN Reason: Pain Last Admin: 05/14/17 23:17 Dose: 1 tab Hydromorphone HCl (Dilaudid) 0.5 - 1 mg IVP Q2H PRN PRN Reason: Pain Last Admin: 05/16/17 07:38 Dose: 1 mg Hydromorphone HCl (Dilaudid) 0.5 - 2 mg IVP Q10M PRN Last Admin: 05/16/17 13:54 Dose: 0.5 mg Dextrose/Sodium Chloride (D5-1/2ns) 1,000 mls @ 100 mls/hr IV .Q10H SHAHNAZ Last Infusion: 05/16/17 05:35 Dose: 100 mls/hr Epinephrine HCl 0.25 mg/Bupivacaine HCl 30 ml/Morphine Sulfate 15 mg/Ketorolac Tromethamine 60 mg/Sodium Chloride 65.25 mls @ 1 mls/hr OPSITE INTRAOP ONE PRN Reason: Protocol Stop: 05/19/17 01:14 Last Admin: 05/16/17 12:36 Dose: 1 mls/hr Lactated Ringer's (Lactated Ringers) 1,000 mls @ 50 mls/hr IV .Q20H SHAHNAZ Last Admin: 05/16/17 12:31 Dose: 50 mls/hr Ondansetron HCl (Zofran) 4 mg IVP Q6H PRN PRN Reason: Nausea &/or vomiting Oxycodone/Acetaminophen (Percocet 5/325) 1 - 2 tab PO Q4H PRN PRN Reason: Pain Last Admin: 05/16/17 00:06 Dose: 2 tab Sodium Chloride (Iv Flush) 10 - 80 ml IV PRN PRN PRN Reason: Flushing Last Admin: 05/15/17 00:02 Dose: 20 ml Home Medications: Home Medications Medication Instructions Recorded Confirmed Type Hydrocodone/Acetaminophen [[place] 1 tab PO BID #0 tab 11/02/16 05/13/17 History 7.5-325 Tablet] Rivaroxaban [Xarelto] 20 mg PO DAILY #30 tab 11/02/16 05/13/17 History Is Patient on Beta Aneesh?: No - Medical History Respiratory: DENIES: Asthma, Sleep Apnea Cardiovascular: Reports: Other (DVT hx- xalelto) Gastrointestional: DENIES: Gastroesophageal Reflux Disease Renal/Endocrine: DENIES: Diabetes Mellitus Type 2 Other History: DENIES: Anesthesia Reactions - Surgical History Musculoskeletal Surgery/Tx: Reports: Other (CARPAL TUNNEL) Anesthesia Reactions: None Hx Family Anesthesia Reaction: No History of Motion Sickness: No - Social History Smoking Status: Former smoker Hx Chewing Tobacco Use: No Second Hand Exposure: No Substance Use Type: marijuana (3 days ago) Alcohol Intake: current Alcohol Intake Frequency: a few times a month Last Drink: hours (ago) - Pertinent Findings Laboratory: CBC and BMP 05/16/17 09:11 05/16/17 09:11 BMP 05/16/17 05/16/17 08:24 09:11 Sodium Cancelled 140 Potassium Cancelled 3.9 Chloride Cancelled 104 Carbon Dioxide Cancelled 28 BUN Cancelled 9.0 Creatinine Cancelled 0.7 L Glucose Cancelled 101 Calcium Cancelled 8.3 L EKG: Sinus Rhythm, First Degree AV Block - Discussion Discussion: Discussed risks/options/alternatives of anesthesia and questions answered. Patient consents. Nursing pain assessment noted. Attestation Statement: Prior to the delivery of any anesthetic medication, I examined the patient, developed the plan, obtained the patient's consent and discussed the risk and benefits of the procedure with the patient/guardian.
--- NOTE | 2017-05-16 14:06 | XRay Report ---
Indication: postoperative image PROCEDURE: XR pelvis w/ 1 view RT hip: Encounter: Initial Comparison: Pelvis radiograph dated May 15, 2017 Findings: Postoperative changes of right total hip replacement are seen. There is expected postoperative subcutaneous gas. No evidence of hardware failure or acute fracture. No retained radiopaque surgical instruments or sponges seen. Impression: New right total hip prosthesis without evidence of immediate complication. .
--- NOTE | 2017-05-16 14:07 | Remote Fluorsocopy Report ---
Indication: R HIP ARTHROPLASTY PROCEDURE: RF hip RT 1 view: Encounter: Initial Comparison: Radiographs from today Findings: Four fluoroscopic spot images are submitted for interpretation. Images show various stages of placement of a right total hip replacement. Impression: Fluoroscopy as above. Fluoroscopy time is 13.2 seconds. Fluoroscopy dose is 791.3 mRad. .
[2017-05-16] MEDS ORDERED: DiphenhydrAMINE 50 MG/ML INJECTION IVP PRN (14:33)
[2017-05-16] MEDS ORDERED: ONDANSETRON 4 MG/2 ML INJECTION IVP PRN (14:33)
[2017-05-16] MEDS ORDERED: DiphenhydrAMINE 25 MG CAPSULE PO PRN (14:33)
[2017-05-16] MEDS ORDERED: LORazepam 1 MG TABLET PO PRN (14:33)
[2017-05-16] MEDS: ACETAMINOPHEN 325 MG TABLET PO SCH ×3 (15:15→20:19)
[2017-05-16] MEDS: NOZIN NASAL SWAB NAS SCH ×2 (15:27→20:20)
[2017-05-16] MEDS: CEFAZOLIN 2 G in NS 100 ML IV SCH (20:17)
[2017-05-16] MEDS: ENOXAPARIN 40 MG/0.4 ML INJECTION SQ SCH (20:20)
[2017-05-16] MEDS: DOCUSATE SODIUM 100 MG CAPSULE PO SCH (20:20)
[2017-05-16] MEDS ORDERED: FALL RISK - PHARMACY CONSULT XX ONE (20:41)
[2017-05-16] MEDS ORDERED: SENNOSIDES 8.6 MG TABLET PO SCH (21:00)
--- NOTE | 2017-05-16 22:15 | Progress Note ---
Subjective: The patient was seen earlier this evening. He underwent right hip fracture pair earlier today and did well. Postoperatively he states he has no pain. He is on room air and denies any dyspnea. He denies any nausea or vomiting. He is eating and drinking well. He has had no recurrence of hematuria. He has a Roy catheter in place. He denies any bleeding around the catheter. He denies any penile pain or bladder pain. The patient states he has a chronic tremor related to history of carpal tunnel. On questioning, he states he drinks 4 or 5 beers a week on average, usually for on Monday and may be one another day of the week. Objective Vital signs: Temperature 99.7 F 05/16/17 14:34 Pulse Rate 99 05/16/17 19:19 Respiratory Rate 16 05/16/17 19:19 Blood Pressure 129/76 05/16/17 19:19 Pulse Oximetry 94 05/16/17 19:19 Rhythm: Normal Sinus Rhythm, Bundle Branch Block Height/Weight/BMI: Height 1.85 m Weight 118.1 kg Body Mass Index 34.2 Comments: GEN-alert, oriented, no acute distress CV-regular rate and rhythm CHEST-clear to auscultation bilaterally ABD-soft, nontender with positive bowel sounds -Roy in place with good urine output, no gross hematuria EXT-no edema, SCDs are on NEURO-mild tremor which the patient states he has had since having carpal tunnel surgery SKIN-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 Results - Labs CBC & Chem 7: 05/16/17 18:07 05/16/17 09:11 Assessment and Plan (1) Fracture of femoral neck, right, closed Current visit: Yes Status: Acute (2) History of DVT (deep vein thrombosis) Current visit: Yes Status: Acute (3) Thrombophlebitis leg superficial Current visit: Yes Status: Acute Assessment and Plan: 05/16/2017 Impression Closed fracture of the right femoral neck History of DVT in 2012, thought to be provoked by a long car ride, on Xarelto since that time Leukocytosis-resolved Gross hematuria over the weekend after receiving 1 dose of Lovenox, no recurrence Chronic tremor Plan Recheck CBC and basic metabolic profile tomorrow Regarding hematuria, I did discuss this with Dr. Freedman. Since hematuria has resolved I don't think he needs to be seen during this hospital course. Dr. Freedman did recommend a CT abdomen and pelvis with contrast and CT urogram. He recommended follow-up with him as an outpatient regarding hematuria. I did discuss this with the patient and his this evening. The orthopedic service did restart Lovenox 40 mg subcutaneous twice a day for DVT prophylaxis. Hospital Course Summary Disclaimer: The visit summary below is not to be considered part of the above Progress Note. Hospital Course: Closed Fracture of the right femoral neck History of DVT in 2012 Mild leukocytosis -resolved Bright red blood draining from penis following administration of Lovenox 05/13/17-hospital admission Patient admitted under hospitalist service and or the consult. Xarelto last taken 05/12/17. Will hold this. May have regular diet until surgery is scheduled. 05/14/17 1. Closed Fracture of the right femoral neck -Hernandez's traction was initiated. Lovenox prophylaxis was started. 2. History of DVT in 2012 -previously on Coumadin but then switched to Xarelto -Xarelto on hold for anticipated hip replacement. 3. Mild leukocytosis -likely reactive 4. SCD's for prophylaxis 5. Bright red blood draining from penis following administration of Lovenox. Lovenox was thus discontinued. -Urology consultation. -Quantitatively this has improved through the afternoon -will continue to follow. 05/15/17 Will be NPO after midnight for surgery with Dr. Villafuerte tomorrow. Lovenox and Xarelto are currently on hold. Lovenox was held after bleeding from the penis. Still having very minimal bleeding after urinating. Awaiting Dr. Smith's consultation. Increase Dilaudid to 1 mg IV every 2 hours PRN since he will not be receiving Percocet after midnight. 05/15/2017-I reviewed this chart, the patient history, and the SILVERSMITH APPRENTICE's/PA's documented findings as above. We discussed and formulated the assessment and plan as above with the additions below.-Ortiz The patient is feeling well other than hip pain. He denies any shortness of breath. He is eating and drinking well. He denies pain elsewhere. He states the bleeding from his penis that he had previously has completely resolved. He did not have any trauma to his penis that he is aware of. On exam the patient is alert and oriented 3 and in no acute distress. Chest is clear to auscultation. Cardiovascular reveals a regular rate and rhythm. Abdomen is soft and nontender. Impression and plan Overall patient is doing well. Agree with plans for surgery tomorrow. Resume anticoagulation postoperatively when okay with the orthopedic service. Discussed hematuria with urology tomorrow.
[2017-05-17] MEDS: Oxycodone *IR* 5 MG TABLET PO PRN ×5 (00:25→19:19)
[2017-05-17] MEDS: D5-1/2NS 1,000 ML IV SCH (03:11)
[2017-05-17] MEDS: NOZIN NASAL SWAB NAS SCH ×3 (03:14→14:42)
[2017-05-17] MEDS: CEFAZOLIN 2 G in NS 100 ML IV SCH (03:20)
[2017-05-17] MEDS ORDERED: SALINE FLUSH 10ml SYRINGE ONE (07:23)
[2017-05-17] MEDS ORDERED: NS 100 ML ONE (07:23)
[2017-05-17] MEDS ORDERED: IOHEXOL 300mg/ml 100ml INJECTION ONE (07:23)
--- NOTE | 2017-05-17 08:28 | Orthopedic Progress Note ---
Date: Subjective/Severity of Illness: Karan has not slept well. He reports if feels good to finally get out of bed. No CP or breathing issues reported. On his way to CT this am for hematuria. Orthopedic Objective PO Vital signs: Temperature 98.1 F 05/17/17 07:00 Pulse Rate 81 05/17/17 07:00 Respiratory Rate 20 05/17/17 07:00 Blood Pressure 133/74 05/17/17 07:00 Pulse Oximetry 95 05/17/17 07:00 Height and Weight: Height 6 ft 1 in Weight 260 lb 5.855 oz Body Mass Index 34.2 - Constitutional General Appearance: Present: alert, no acute distress - Respiratory Exam Present: non-labored - Extremities Exam Extremities: Present: pulses intact, normal capillary refill - Surgical Site Incision: clean, dry, intact - Integumentary Exam Present: pink, warm, dry - Neurological Exam Present: intact to light touch, no deficits - Psychiatric Exam Present: alert, normal affect - Labs Result Diagrams: 05/17/17 04:30 05/17/17 04:30 Abnormal lab results 05/16/17 05/16/17 05/16/17 Range/Units 09:11 09:11 18:07 WBC (4.5-11.0) T/MM3 RBC 4.45 L (4.50-5.90) M/MM3 Hgb 12.3 L (13.5-17.5) GM/DL Hct 40.3 L (41-53) % Neutrophils % (Manual) 68.0 H (33-66) % Lymphocytes % (Manual) 18.0 L (23-45) % Eosinophils % (Manual) 7.0 H (0-4) % Eosinophils # (Manual) 0.6 H (0-0.5) T/MM3 Creatinine 0.7 L (0.8-1.5) MG/DL Glucose (75-110) MG/DL Calcium 8.3 L (8.4-10.2) MG/DL 05/17/17 05/17/17 Range/Units 04:30 04:30 WBC 11.3 H (4.5-11.0) T/MM3 RBC 3.62 L (4.50-5.90) M/MM3 Hgb 11.0 L (13.5-17.5) GM/DL Hct 32.8 L D (41-53) % Neutrophils % (Manual) (33-66) % Lymphocytes % (Manual) (23-45) % Eosinophils % (Manual) (0-4) % Eosinophils # (Manual) (0-0.5) T/MM3 Creatinine 0.7 L (0.8-1.5) MG/DL Glucose 120 H (75-110) MG/DL Calcium 8.1 L (8.4-10.2) MG/DL H & H 05/13/17 05/15/17 05/16/17 Range/Units 22:55 04:49 08:24 Hgb 14.2 13.6 Cancelled (13.5-17.5) GM/DL Hct 41.8 40.7 L Cancelled (41-53) % 05/16/17 05/16/17 05/17/17 Range/Units 09:11 18:07 04:30 Hgb 13.5 12.3 L 11.0 L (13.5-17.5) GM/DL Hct 40.3 L 32.8 L D (41-53) % Orthopedic Assessment and Plan (1) Fracture of femoral neck, right, closed Status: Acute Qualifiers: Encounter type: initial encounter Qualified Code(s): S72.001A - Fracture of unspecified part of neck of right femur, initial encounter for closed fracture Assessment and Plan: Rt Total Hip Replacement 05/16/[address] Villafuerte. Mobilize with PT / OT today. WBAT. Lovenox x 7 days and then restart Xarelto. Continue SCDs and encourage mobilization. - Anticoagulation Therapy Anticoagulation: other (Lovenox 40mg SQ q 12hrs x 7 days. Then resume Xarelto after 7 days of Lovenox therapy.) Hospital Course Summary Disclaimer: The visit summary below is not to be considered part of the above Progress Note. Hospital Course: Closed Fracture of the right femoral neck History of DVT in 2012 Mild leukocytosis -resolved Bright red blood draining from penis following administration of Lovenox 05/13/17-hospital admission Patient admitted under hospitalist service and or the consult. Xarelto last taken 05/12/17. Will hold this. May have regular diet until surgery is scheduled. 05/14/17 1. Closed Fracture of the right femoral neck -Hernandez's traction was initiated. Lovenox prophylaxis was started. 2. History of DVT in 2012 -previously on Coumadin but then switched to Xarelto -Xarelto on hold for anticipated hip replacement. 3. Mild leukocytosis -likely reactive 4. SCD's for prophylaxis 5. Bright red blood draining from penis following administration of Lovenox. Lovenox was thus discontinued. -Urology consultation. -Quantitatively this has improved through the afternoon -will continue to follow. 05/15/17 Will be NPO after midnight for surgery with Dr. Villafuerte tomorrow. Lovenox and Xarelto are currently on hold. Lovenox was held after bleeding from the penis. Still having very minimal bleeding after urinating. Awaiting Dr. Smith's consultation. Increase Dilaudid to 1 mg IV every 2 hours PRN since he will not be receiving Percocet after midnight. 05/15/2017-I reviewed this chart, the patient history, and the TICKET MACHINE OPERATOR's/PA's documented findings as above. We discussed and formulated the assessment and plan as above with the additions below.-Ortiz The patient is feeling well other than hip pain. He denies any shortness of breath. He is eating and drinking well. He denies pain elsewhere. He states the bleeding from his penis that he had previously has completely resolved. He did not have any trauma to his penis that he is aware of. On exam the patient is alert and oriented 3 and in no acute distress. Chest is clear to auscultation. Cardiovascular reveals a regular rate and rhythm. Abdomen is soft and nontender. Impression and plan Overall patient is doing well. Agree with plans for surgery tomorrow. Resume anticoagulation postoperatively when okay with the orthopedic service. Discussed hematuria with urology tomorrow.
[2017-05-17] MEDS: ENOXAPARIN 40 MG/0.4 ML INJECTION SQ SCH ×2 (08:35→19:37)
[2017-05-17] MEDS: DOCUSATE SODIUM 100 MG CAPSULE PO SCH (08:36)
[2017-05-17] MEDS: ACETAMINOPHEN 325 MG TABLET PO SCH ×3 (08:36→19:18)
[2017-05-17] MEDS ORDERED: POLYETHYL GLYCOL 3350 17gm PACKET PO SCH (09:00)
--- NOTE | 2017-05-17 09:05 | CT Scan Report ---
Indication: gross blood from penis PROCEDURE: CT renal wo/w con: Encounter: Initial Comparison: None Technique: Axial CT images were performed through the abdomen and pelvis before and after the administration of intravenous contrast. Delayed postcontrast images were also performed. Coronal and sagittal 2-dimensional reformats. Automated Exposure Control and Iterative Reconstruction dose reducing techniques were utilized. Contrast: Omnipaque 300 99 mL Findings: The lung bases are grossly clear. Noncontrast images show no renal or ureteral stone disease. Metallic artifact from a right hip replacement obscuring portions of the pelvis. Postcontrast images show multiple small cysts within the liver. No enhancing liver mass or bile duct dilatation. The gallbladder, spleen, pancreas and adrenal glands are within normal limits. Kidneys enhance normally. No renal masses. No abdominal or pelvic lymphadenopathy. Roy catheter within the bladder which contains gas. It is decompressed and difficult to evaluate the wall thickness. No free fluid. No evidence of a bowel obstruction. The appendix is normal. No obvious penile or urethral masses seen. Bone windows show degenerative change in the lower lumbar spine. Delayed postcontrast images show symmetric excretion of contrast by both renal collecting systems. No obvious filling defects or masses. The ureters appear normal in course and caliber. Impression: Essentially negative exam. No clear etiology for the patient's symptoms. .
--- NOTE | 2017-05-17 11:50 | Discharge Instructions ---
Discharge Plan - Med Rec/Dispo Referrals/Follow Up: Meño Boyle PA [Physician Materials Coordinator] - (Please schedule follow up apt ) Derrick Flores MD [Family Provider] - (Schedule follow up apt for 1 week) Prescriptions: New Acetaminophen [Tylenol] 650 mg PO QID tablet Enoxaparin Sodium [Lovenox] 40 mg SQ Q12H 7 Days #13 syringe Oxycodone *IR* [Roxicodone *Ir*] 5 - 15 mg PO Q3H PRN #20 tab PRN Reason: Breakthrough Pain Docusate Sodium [Colace] 100 mg PO BID capsule PEG 3350 17gm PACKET [Miralax] 17 gm PO DAILY packet Continue Rivaroxaban [Xarelto] 20 mg PO DAILY #30 tab No Action Hydrocodone/Acetaminophen [[place] 7.5-325 Tablet] 1 tab PO BID #0 tab Discharge Instructions/Outpatient Orders: Provider Discharge Instructions Location: Determined By Patient - Disposition 01 Discharged Home, Self-Care
[2017-05-17] MEDS ORDERED: SENNOSIDES 8.6 MG TABLET PO PRN (13:00)
--- NOTE | 2017-05-17 13:12 | Discharge Summary ---
<Josie Gerber V - Last Filed: 05/17/17 13:08> Discharge Information Date of admission: 05/13/17 22:10 Anticipated date of discharge: 05/17/17 Attending Physician: Cas Cox MD Primary care physician: Derrick Flores MD Consults: 05/14/17 13:25 Physician Consult [CONS] Routine Consulting Provider: Scott Freedman Reason For Exam: blood seeping out of penile meatus Ordering Provider has Notified Asian Studies Program Chair: No Comment: please notify today 05/15/17 06:00 Consult to Anesthesiology [CONS] Routine Consulting Provider: THEODORE Sam Reason For Exam: Preoperative Assessment 05/16/17 14:33 Case Management Consult [CONS] Routine Reason For Exam: Discharge Planning DME-Walker [CONS] Routine Height: 1.85 m Weight: 118.1 kg Comment: change dressing in 2 weeks Total Joint Outpatient Therapy [CONS] Routine Comment: change dressing in 2 weeks - Discharge Diagnosis (1) Fracture of femoral neck, right, closed Status: Acute (2) History of DVT (deep vein thrombosis) Status: Acute (3) Thrombophlebitis leg superficial Status: Acute Discharge Diagnosis: Closed fracture of the right femoral neck History of DVT in 2012, thought to be provoked by a long car ride, on Xarelto since that time Leukocytosis-resolved Gross hematuria- resolved Chronic tremor - Procedures Procedures: 05/16/17-right hip replacement-Dr. Villafuerte - Laboratory Labs: 05/17/17 04:30 05/17/17 04:30 - Microbiology None - Radiology Radiology: 05/13/17-pelvis [id number]: Closed posttraumatic subcapital right femoral neck fracture 05/13/17- CT head and C-spine without any acute trauma 05/13/17-chest x-ray negative for acute cardiopulmonary findings 05/16/17-hip and pelvis [id number]: New right total hip prosthesis without evidence of immediate complication. 05/17/17- Impression: Essentially negative exam. No clear etiology for the patient's symptoms. - Pathology None History of Present Illness HPI: 57-year-old male who was in his usual state of health this evening, he was at a [employer], was trying to climb over a 4 foot fence, fell on his right hip. He experienced immediate pain, was brought to the emergency room and evaluated. Was noted to have a femoral neck fracture. He does take Xarelto for a history of right lower extremity DVT. last dose on May 12. He can typically walk across a flat surface or above on stairs without having to stop too much shortness of breath. Objective Vital signs: Temperature 97.9 F 05/17/17 12:04 Pulse Rate 90 05/17/17 12:04 Respiratory Rate 16 05/17/17 12:04 Blood Pressure 124/75 05/17/17 12:04 Pulse Oximetry 93 05/17/17 12:04 Height/Weight/BMI: Height 1.85 m Weight 118.1 kg Body Mass Index 34.2 - Constitutional Present: no acute distress, well nourished, well developed - Routine HEENT Exam Eye: Present: EOMI ENT: Present: mucous membranes moist, dentition normal - Routine Respiratory Exam Present: CTA bilaterally. Absent: wheezes - Routine Cardiovascular Exam Present: RRR, S1, S2. Absent: murmur - Routine Abdominal Exam Present: soft, normoactive bowel sounds, non distended. Absent: tenderness - Routine Extremities Exam Present: normal capillary refill Comments: Right hip pain postp-op - Routine Skin Exam Present: intact, dry, warm - Routine Neurological Exam Present: alert, oriented X3, CN II-XII intact - Routine Lymphatic Exam Lymphatic: Absent: adenopathy - Routine Psychiatric Exam Present: normal affect Hospital Course This is a general summary of the patient's hospital course. For more details refer to the complete medical record. Hospital course: Closed Fracture of the right femoral neck History of DVT in 2012 Mild leukocytosis -resolved Bright red blood draining from penis following administration of Lovenox 05/13/17-hospital admission Patient admitted under hospitalist service and or the consult. Xarelto last taken 05/12/17. Will hold this. May have regular diet until surgery is scheduled. 05/14/17 1. Closed Fracture of the right femoral neck -Hernandez's traction was initiated. Lovenox prophylaxis was started. 2. History of DVT in 2012 -previously on Coumadin but then switched to Xarelto -Xarelto on hold for anticipated hip replacement. 3. Mild leukocytosis -likely reactive 4. SCD's for prophylaxis 5. Bright red blood draining from penis following administration of Lovenox. Lovenox was thus discontinued. -Urology consultation. -Quantitatively this has improved through the afternoon -will continue to follow. 05/15/17 Will be NPO after midnight for surgery with Dr. Villafuerte tomorrow. Lovenox and Xarelto are currently on hold. Lovenox was held after bleeding from the penis. Still having very minimal bleeding after urinating. Awaiting Dr. Freedman consultation. Increase Dilaudid to 1 mg IV every 2 hours PRN since he will not be receiving Percocet after midnight. 05/17/07- Discharge Given is seen and examined today. Overall he is feeling good. Was able to get up and work with therapy and he is stable utilizing a walker. He did have a renal sonogram this morning. Given hematuria and it was negative. Roy catheter will be removed prior to discharge. It is recommended that he follow- up with urologist, Dr. Freedman in the outpatient setting. Patient will be discharged with a walker and a hip kit. Case discussed with orthopedic team. Patient will utilize Lovenox 40 grams subcutaneous twice a day 7 days. On 05/24. Patient is okayed to resume home Xarelto that he is chronically taking for DVT. Patient will be discharged on oxycodone to utilize for pain control. It is instructed to have patient follow-up with orthopedic team as directed as well as primary care provider, Dr. Flores in one week. Patient is instructed to present to the emergency room or contact primary care if he has any acute bleeding. Time spent with patient: discharge greater than 30 minutes Discharge Plan - Med Rec/Dispo Referrals/Follow Up: Derrick Flores MD [Family Provider] - (Schedule follow up apt for 1 week) Scott Freedman MD [Physician] - 05/29/17 8:50 am (check in time at 8:30) Meño Boyle PA [Physician Nascar Driver] - (Please schedule follow up apt ) Prescriptions: New Acetaminophen [Tylenol] 650 mg PO QID tablet Enoxaparin Sodium [Lovenox] 40 mg SQ Q12H 7 Days #13 syringe Oxycodone *IR* [Roxicodone *Ir*] 5 - 15 mg PO Q3H PRN #20 tab PRN Reason: Breakthrough Pain Docusate Sodium [Colace] 100 mg PO BID capsule PEG 3350 17gm PACKET [Miralax] 17 gm PO DAILY packet Continue Rivaroxaban [Xarelto] 20 mg PO DAILY #30 tab No Action Hydrocodone/Acetaminophen [[place] 7.5-325 Tablet] 1 tab PO BID #0 tab Discharge Instructions/Outpatient Orders: Provider Discharge Instructions Location: Determined By Patient - Disposition 01 Discharged Home, Self-Care <Cas Cox - Last Filed: 05/17/17 16:00> Discharge Information Date of admission: 05/13/17 22:10 Attending Physician: Cas Cox MD Primary care physician: Derrick Flores MD Consults: 05/14/17 13:25 Physician Consult [CONS] Routine Consulting Provider: Scott Freedman Reason For Exam: blood seeping out of penile meatus Ordering Provider has Notified Asian Studies Program Chair: No Comment: please notify today 05/15/17 06:00 Consult to Anesthesiology [CONS] Routine Consulting Provider: THEODORE Sam Reason For Exam: Preoperative Assessment 05/16/17 14:33 Case Management Consult [CONS] Routine Reason For Exam: Discharge Planning DME-Walker [CONS] Routine Height: 1.85 m Weight: 118.1 kg Comment: change dressing in 2 weeks Total Joint Outpatient Therapy [CONS] Routine Comment: change dressing in 2 weeks - Discharge Diagnosis (1) Fracture of femoral neck, right, closed Status: Acute (2) History of DVT (deep vein thrombosis) Status: Acute (3) Thrombophlebitis leg superficial Status: Acute - Laboratory Labs: 05/17/17 04:30 05/17/17 04:30 Objective Vital signs: Temperature 97.9 F 05/17/17 12:04 Pulse Rate 90 05/17/17 12:04 Respiratory Rate 16 05/17/17 12:04 Blood Pressure 124/75 05/17/17 12:04 Pulse Oximetry 93 05/17/17 12:04 Height/Weight/BMI: Height 1.85 m Weight 118.1 kg Body Mass Index 34.2 Hospital Course This is a general summary of the patient's hospital course. For more details refer to the complete medical record. Discharge Plan - Med Rec/Dispo - Attestation Attestation Narrative: 05/17/17 15:56 I have independently interviewed and examined patient prior to discharge. Case discussed with my LITIGATION ASSOCIATE. Care plan developed with my supervision; agree with above. Doing well today. Pain well controlled. Making functional improvements with therapy. Feels confident that will do well at home. Breathing stable. Eating well. Stools very slow, but feels just about to pass bowel. Ory removed. Lungs: Clear, no distress. CV: regular AB: soft nt/nd +BS MSE: awake alert appropriate Plan: Medically stable for discharge to home. Lovenox for 1 week before restarting Xarelto. Outpatient urological evaluation secondary to hematuria. Continue to work on bowel function. Encourage continued activities to improve functional status. See orders for details.
[2017-05-17 16:58] VITALS: BP 155/74; PULSE 81; RESP 18; TEMP 96.3; O2SAT 92
[2017-05-18] MEDS ORDERED: BISACODYL 10 MG SUPPOSITORY RECTALLY SCH (20:00)
== END 2017-05-17 19:40 | disposition home or self-care (01) | DRG 470 ==
LOC: ED 18:59 → SRG 22:10 → SUATTDRO 22:10
PROVIDERS: ADMIT Pediatrics; ATTEND Hospitalist